=== PATIENT | female | born 1970 ===

== ENCOUNTER 2019-04-20 06:23 | Day surgery (SDC) | payer OTHER ==
--- NOTE | 2019-04-11 12:26 | HP ---
PREOPERATIVE HISTORY AND PHYSICAL: DATE OF ADMISSION/SURGERY: 04/20/19 DATE OF OFFICE VISIT/ENCOUNTER: 03/29/19 ATTENDING SURGEON: Claudia Christie MD * (DICTATED BY OLIVIA KWONG) PROCEDURE: Trigger release, right thumb. HISTORY OF PRESENT ILLNESS: This is a 48-year-old female, who complains of bilateral thumb pain, clicking, and locking. Her right is worse than her left. She has failed conservative treatment including physical therapy and a cortisone injection. She would like to proceed with surgery at this time and would like to have trigger release on her right thumb. She will likely follow this with the same surgery for her left thumb. She is a pain management patient for chronic back/neck pain and takes Percocet on a regular basis. PAST MEDICAL HISTORY: 1. Chronic back/neck pain. 2. Asthma. 3. Depression/anxiety. 4. Hyperthyroidism. PAST SURGICAL HISTORY: 1. Tubal ligation. 2. Hysterectomy. 3. Lumbar diskectomy, L5-S1. 4. Lumbar fusion. 5. Cervical spine fusion. CURRENT MEDICATIONS: 1. Albuterol sulfate 108 (90 base) mcg/ACT. 2. Buspirone HCl 10 mg twice a day. 3. Chantix 1 mg twice a day. 4. Epinephrine 0.3 mg/0.3 mL use as directed. 5. Hydrocortisone 5 mg daily. 6. Loratadine 10 mg every day for cough/congestion. 7. Meloxicam 15 mg daily. 8. Percocet 10/325 mg 1 tab q.6 hours p.r.n. pain. 9. Prilosec OTC 20 mg daily. 10. Sertraline HCl 100 mg 1-1/2 tabs daily. 11. Soma 250 mg daily. 12. Trazodone HCl 150 mg daily. 13. Vitamin C 1000 mg daily. 14. Vitamin D3 1000 units daily. ALLERGIES: AZITHROMYCIN, CEFTIN, TORADOL, TRAMADOL and those are medication allergies. Other allergies: MARIJUANA, BEE STING, CHERRIES, EGG, and TAPE. FAMILY MEDICAL HISTORY: Diabetes, hypertension, cancer. SOCIAL HISTORY: The patient is disabled. She is a current smoker. She reports smoking 5 to 6 cigarettes a day and has smoked since age 14. She denies recreational drug use and does not drink alcohol. REVIEW OF SYSTEMS: Negative for general, cephalic, cardiovascular, respiratory , GI, , other musculoskeletal, integumentary, endocrine, neurologic, and hematologic symptoms. Infectious Disease: Negative for MRSA, hepatitis C, HIV. PHYSICAL EXAMINATION GENERAL: A well-developed, well-nourished 48-year-old female, in no acute distress. VITAL SIGNS: Height 5 feet 6 inches, weight 109 pounds. Pulse rate 80, blood pressure 118/72. HEENT: Normocephalic, atraumatic. Pupils are equal, round, and reactive to light and accommodation. Extraocular movements are intact. Throat is clear. NECK: Supple. No palpable lymph nodes. PULMONARY: Lungs are clear to auscultation bilaterally. No wheezes, rales, or rhonchi. CARDIOVASCULAR: Regular rate and rhythm. S1, S2. No murmurs, rubs, or gallops. No edema. ABDOMEN: Positive bowel sounds. Soft, nontender. NEUROLOGICAL: Alert and oriented x3. Cranial nerves II through XII are intact. Sensation is intact to light touch. MUSCULOSKELETAL: On exam of bilateral thumbs, there is no visible swelling. She has tenderness to palpation at the A1 sultana of each thumb, right is worse than left. She has active triggering of both thumbs with range of motion. Skin is intact. Neurovascular function is intact. IMPRESSION: Bilateral thumb trigger thumbs, right worse than left. PLAN: The patient is scheduled to undergo a trigger release right thumb with Dr. Christie on 04/20/19. She will return to the office 10 days postop for followup and suture removal. She will use pain medications as prescribed by Pain Management for postoperative pain management. OLIVIA KWONG [id number]/CPS #: [id number] NISHANT
[~2019-04-20 06:23] MED LIST: Buffered Lidocaine 1% SYRIN* 1 ML/SYRINGE INTRADERM ONE; Famotidine IV* 10 MG/ML 2 ML (20 mg) IV ONE; Famotidine IV* 10 MG/ML 2 ML (20 mg) ONE; Lactated Ringers 1000 ML Bag* 1,000 ML IV SCH
[2019-04-20] MEDS ORDERED: Lidocaine 1% INJ* 10 MG/ML 30 ML SDV ONE (07:10)
[2019-04-20] MEDS ORDERED: Midazolam* 1 MG/ML 5 ML VIAL (5 MG) ONE (07:28)
[2019-04-20] MEDS ORDERED: Propofol* 10 MG/ML 20 ML BTL ONE (07:39)
[2019-04-20] MEDS ORDERED: Ondansetron INJ* 2 MG/ML VIAL ONE (07:39)
[2019-04-20] MEDS ORDERED: Lidocaine 2% PF * 5 ML VIAL ONE (07:40)
[2019-04-20] MEDS ORDERED: oxyCODONE/Acetamin 5/325 MG* TAB PO PRN (07:54)
[2019-04-20] MEDS ORDERED: oxyCODONE/Acetamin 5/325 MG* TAB ONE (08:10)
[2019-04-20 08:37] VITALS: BP 94/57
--- NOTE | 2019-04-20 11:36 | OP ---
DATE OF OPERATION: 04/20/19 [facility] DATE OF : 66 SURGEON: Claudia Christie MD SENIOR SYSTEMS DEVELOPER: OLIVIA Noguera ANESTHESIA: Local MAC. PRE-OP DIAGNOSIS: Right trigger thumb. POST-OP DIAGNOSIS: Right trigger thumb. OPERATIVE PROCEDURE: Right trigger thumb release. ESTIMATED BLOOD LOSS: Zero. TOURNIQUET TIME: About 10 minutes. INDICATION FOR PROCEDURE: Lashaun is a 48-year-old woman who has triggering and locking of her right thumb. She presents for trigger thumb release. DESCRIPTION OF PROCEDURE: The patient was brought to the operating room and given a sedation anesthetic and local infiltration of 10 cc of 1% plain lidocaine overlying the A1 sultana of her right thumb. The skin of her right hand and forearm was prepped and draped in the usual sterile fashion. The hand and forearm were exsanguinated and the tourniquet elevated to 250 mmHg. A transverse incision was made centered over the A1 sultana. We dissected through the subcutaneous tissue down to the sultnaa. The sultana was incised longitudinally while the digital neurovascular bundles were retracted by the assembler surgical garment Cris Farrell with . The tendon was in good condition and was completely released. The wound was irrigated and the skin edges reapproximated with 4-0 nylon suture. The wound was dressed with Xeroform , 4x4, Webril, and an Jarad wrap. The patient tolerated the procedure well and was brought to the recovery room in good condition. [id number]/CPS #: [id number] MTDD
== END 2019-04-20 08:47 | disposition home or self-care (01) ==
LOC: OREAST 06:23
PROVIDERS: ATTEND Orthopaedic Surgery
PROC: 0LN70ZZ Release Right Hand Tendon, Open Approach (ICD-10-PCS; principal; 2019-04-20 07:30)
DX: M65.311 Trigger thumb, right thumb (principal); M65.312 Trigger thumb, left thumb; F41.8 Other specified anxiety disorders; G89.29 Other chronic pain; J45.909 Unspecified asthma, uncomplicated; F17.210 Nicotine dependence, cigarettes, uncomplicated; Z79.51 Long term (current) use of inhaled steroids; Z98.1 Arthrodesis status; Z79.891 Long term (current) use of opiate analgesic
CPT/HCPCS: A9270-GY; J2250; J2405; J2704